=== PATIENT | female | born 1980 | race Hispanic/Latino ===

== ENCOUNTER 2017-02-10 01:01 | Emergency (ER) | payer OTHER ==
[2017-02-10 01:14] VITALS: BMI 26.7
[2017-02-10 01:22] VITALS: TEMP 97.8
--- NOTE | 2017-02-10 01:30 | ED PDOC ---
Arrival/HPI - General Chief Complaint: Chest Pain Time Seen by Provider: 02/10/17 01:03 Historian: Patient - History of Present Illness Narrative History of Present Illness (Text): 02/10/17 01:27 Lesa Hopkins is a 37 year old female, whose past medical history includes Hashimotos's thyroiditis, who presents to the Emergency department complaining of chest tightness since yesterday. Patient reports associated intermittent palpitations. Patient also notes bilateral lower extremity when standing, left greater than right. Patient states she had an ultrasound of bilateral lower extremities performed 2 months ago, which was negative. Patient denies any fever, chills, shortness of breath, nausea, vomiting, diarrhea, urinary symptoms, back pain, neck pain, headache, dizziness, or any other complaints. Symptom Onset: Gradual Symptom Course: Unchanged Activities at Onset: Rest, Light Context: Home Past Medical History - Provider Review Nursing Documentation Reviewed: Yes - Infectious Disease Hx of Infectious Diseases: None - Tetanus Immunization Tetanus Immunization: Unknown - Past Medical History Past Medical History: No Previous - Cardiac Hx Cardiac Disorders: Yes Other/Comment: postural orthostatic tachycardia syndrome - Pulmonary Hx Respiratory Disorders: No - Neurological Hx Neurological Disorder: No - HEENT Hx HEENT Disorder: No - Renal Hx Renal Disorder: No - Endocrine/Metabolic Hx Endocrine Disorders: Yes Hx Hypothyroidism: Yes (Petar's thyroiditis, now stable) - Hematological/Oncological Hx Blood Disorders: No - Integumentary Hx Dermatological Disorder: No - Musculoskeletal/Rheumatological Hx Musculoskeletal Disorders: No Hx Falls: No - Gastrointestinal Hx Gastrointestinal Disorders: No - Genitourinary/Gynecological Hx Genitourinary Disorders: No - Psychiatric Hx Psychophysiologic Disorder: Yes Hx Anxiety: Yes Hx Substance Use: No - Surgical History Other/Comment: ovarian cyst laparoscopic removal - Anesthesia Hx Anesthesia: Yes Hx Anesthesia Reactions: No Hx Malignant Hyperthermia: No - Suicidal Assessment Feels Threatened In Home Enviroment: No Family/Social History - Physician Review Nursing Documentation Reviewed: Yes Family/Social History: No Known Family HX Smoking Status: Never Smoked Hx Alcohol Use: No Hx Substance Use: No Hx Substance Use Treatment: No Allergies/Home Meds Allergies/Adverse Reactions: Allergies amoxicillin Allergy (Verified 02/10/17 01:14) RASH Penicillins Allergy (Verified 02/10/17 01:14) RASH wheat Allergy (Verified 02/10/17 01:14) RASH Home Medications: Home Meds Medication Instructions Recorded Confirmed No Known Home Med 02/10/17 02/10/17 Review of Systems - Physician Review All systems were reviewed & negative as marked: Yes - Review of Systems Constitutional: Normal. absent: Fevers Eyes: Normal ENT: Normal Respiratory: Normal. absent: SOB, Cough Cardiovascular: Chest Pain (+chest tightness), Palpitations Gastrointestinal: Normal. absent: Abdominal Pain, Diarrhea, Nausea, Vomiting Genitourinary Female: Normal Musculoskeletal: Other (+bilateral lower extremity swelling) Skin: Normal Neurological: Normal Endocrine: Normal Hemo/Lymphatic: Normal Psychiatric: Normal Physical Exam Vital Signs Reviewed: Yes Vital Signs Temp Pulse Resp BP Pulse Ox 02/10/17 03:49 79 17 102/69 99 02/10/17 01:21 97.8 F 96 H 20 118/88 96 Temperature: Afebrile Blood Pressure: Normal Pulse: Regular Respiratory Rate: Normal Appearance: Positive for: Well-Appearing, Non-Toxic, Comfortable Pain Distress: None Mental Status: Positive for: Alert and Oriented X 3 - Systems Exam Head: Present: Atraumatic, Normocephalic Pupils: Present: PERRL Extroacular Muscles: Present: EOMI Conjunctiva: Present: Normal Mouth: Present: Moist Mucous Membranes Neck: Present: Normal Range of Motion Respiratory/Chest: Present: Clear to Auscultation, Good Air Exchange. No: Respiratory Distress, Accessory Muscle Use Cardiovascular: Present: Regular Rate and Rhythm, Normal S1, S2. No: Murmurs Abdomen: Present: Normal Bowel Sounds. No: Tenderness, Distention, Peritoneal Signs Back: Present: Normal Inspection Upper Extremity: Present: Normal Inspection. No: Cyanosis, Edema Lower Extremity: Present: Normal Inspection. No: Edema Neurological: Present: GCS=15, CN II-XII Intact, Speech Normal Skin: Present: Warm, Dry, Normal Color. No: Rashes Psychiatric: Present: Alert, Oriented x 3, Normal Insight, Normal Concentration Medical Decision Making ED Course and Treatment: 02/10/17 01:27 Impression: 37 year old female complaining of chest tightness and intermittent palpitations. Plan: -- US Duplex Lower Extremities -- EKG -- Labs, cardiac enzymes, TSH, T4 -- Urinalysis -- Reassess and disposition Prior Visits: Notes and results from previous visits were reviewed. On 10/30/2016, pt was seen in the Emergency department for a puncture wound to left foot. Pt was d/c home. Progress Notes: Reviewed EKG, sinus tachycardia at [address]-segment elevations or depressions, no T-wave inversions, normal intervals. 02/10/17 02:17 Reviewed US Duplex Lower Extremities, preliminary read shows no evidence of DVT. Labs reviewed, potassium: 3.2. Replacement ordered. Otherwise benign 02/10/17 03:40 On re-evaluation, the patient feels better and is in no acute distress. I have discussed the results and plan with the patient, who expresses understanding. Patient in agreement with plan to discharged home. Patient is stable for discharge. Patient was instructed to follow up with physician/clinic in 1-2 days or return if symptoms worsen or new concerning symptoms arise. - Lab Interpretations Lab Results: 02/10/17 01:30 02/10/17 01:30 Lab Results 02/10/17 01:30: D-Dimer, Quantitative 0.19 02/10/17 01:30: Thyroxine (T4) 8.5, TSH 3rd Generation 2.50 02/10/17 01:30: Sodium 138, Potassium 3.2 L, Chloride 103, Carbon Dioxide 26, Anion Gap 12, BUN 14, Creatinine 0.6, Est GFR ( Amer) > 60, Est GFR (Non- Af Amer) > 60, Random Glucose 96, Calcium 9.2, Total Bilirubin 0.9, AST 39, ALT 59 H, Alkaline Phosphatase 79, Lactate Dehydrogenase 373, Total Creatine Kinase 44, Troponin I < 0.01, Total Protein 7.3, Albumin 4.3, Globulin 3.0, Albumin/ Globulin Ratio 1.4 02/10/17 01:30: Urine Color Light yellow, Urine Appearance Clear, Urine pH 6.0, Ur Specific [place] 1.010, Urine Protein Negative, Urine Glucose (UA) Negative, Urine Ketones 15 H, Urine Blood Trace-lysed H, Urine Nitrate Negative, Urine Bilirubin Negative, Urine Urobilinogen 0.2, Ur Leukocyte Esterase Negative, Urine RBC 0 - 2, Urine WBC 0 - 2, Ur Epithelial Cells 10 - 12, Urine Bacteria Small, Urine HCG, Qual Negative 02/10/17 01:30: PT 11.4, INR 1.06, APTT 32.4 H 02/10/17 01:30: WBC 8.2, RBC 4.61, Hgb 12.7, Hct 36.8, MCV 79.8 L, MCH 27.5, MCHC 34.5, RDW 13.0, Plt Count 242, MPV 10.2, Gran % 58.8, Lymph % (Auto) 29.9, [place] % (Auto) 8.4 H, Eos % (Auto) 2.7, Baso % (Auto) 0.2, Gran # 4.80, Lymph # 2.4, [place] # 0.7 H, Eos # 0.2, Baso # 0.02 I have reviewed the lab results: Yes - RAD Interpretation Radiology Orders: 02/10/17 01:28 DUPLEX LOWER EXTRM VEIN BILAT [US] Stat - EKG Interpretation EKG Interpretation (Text): EKG: Ordered, reviewed, and independently interpreted the EKG. Rate : 101 BPM Rhythm : sinus tachycardia Interpretation : No ST-segment elevations or depressions, no T-wave inversions, normal intervals. Comparison : No acute change from previous EKG on 03/14/16. Interpreted by ED Physician: Yes Type: 12 lead EKG - Medication Orders Current Medication Orders: Discontinued Medications Potassium Chloride (K-Dur 20 Meq Er Tab) 40 meq PO STAT STA Stop: 02/10/17 02:19 Last Admin: 02/10/17 02:33 Dose: 40 meq ROULA Risk Score for UA/NSTEMI - ROULA Risk Score Age > 64: NO 3 or more CAD Risk Factors: NO Known CAD (Stenosis greater than 50%): NO Aspirin use in past 7 days: NO Severe Angina: NO EKG ST changes greater than 0.5mm: NO Positive Cardiac Marker: NO ROULA Score: 0 % risk at 14 days of: all cause mortality, new or recurrent PR, or severe recurrent ischemia requiring urgen revascularization: 5% - Scribe Statement The provider has reviewed the documentation as recorded by the [employer] Horvath All medical record entries made by the Scribe were at my direction and personally dictated by me. I have reviewed the chart and agree that the record accurately reflects my personal performance of the history, physical exam, medical decision making, and the department course for this patient. I have also personally directed, reviewed, and agree with the discharge instructions and disposition. Disposition/Present on Arrival - Present on Arrival Any Indicators Present on Arrival: No History of DVT/PE: No History of Uncontrolled Diabetes: No Urinary Catheter: No History of Decub. Ulcer: No History Surgical Site Infection Following: None - Disposition Have Diagnosis and Disposition been Completed?: Yes Diagnosis: Palpitations, Chest pain Disposition: HOME/ ROUTINE Disposition Time: 03:40 Condition: GOOD Discharge Instructions (ExitCare): Chest Pain (ED), Palpitations (ED)
[2017-02-10 01:46] LABS: ADD MANUAL DIFF? NO
[2017-02-10 01:54] LABS: BASO # 0.02 K/mm3 (0.0-2.0); BASO % 0.2 % (0.0-3.0); EOS # 0.2 (0.0-0.7); EOS % 2.7 % (1.5-5.0); GRAN % 58.8 % (50.0-68.0); HEMATOCRIT 36.8 % (36.0-48.0); LYMPH # 2.4 (1.2-3.4); LYMPH % 29.9 % (22.0-35.0); MEAN CELL VOLUME 79.8 fL (80.0-105.0); MEAN CORPUSCULAR HEMOGLOBIN 27.5 pg (25.0-35.0); MEAN CORPUSCULAR HGB CONC 34.5 g/dl (31.0-37.0); MEAN PLATELET VOLUME 10.2 fl (7.0-11.0); MONO # 0.7 (0.1-0.6); MONO % 8.4 % (1.0-6.0); PLATELET COUNT 242 10^3/uL (120.0-450.0); WHITE BLOOD COUNT 8.2 10^3/ul (4.5-11.0)
[2017-02-10 02:00] LABS: ALB/GLOB RATIO 1.4 (1.1-1.8); ALKALINE PHOSPHATASE 79 U/L (38-133); ALT/SGPT 59 U/L (7-56); AST/SGOT 39 U/L (15-39); BILIRUBIN,TOTAL 0.9 mg/dL (0.2-1.3); BLOOD UREA NITROGEN 14 mg/dL (7-21); CALCIUM 9.2 mg/dL (8.4-10.5); CARBON DIOXIDE 26 mmol/L (21-33); CHLORIDE 103 mmol/L (98-107); GFR AFRICAN-AMERICAN > 60; GLUCOSE,RANDOM 96 mg/dL (70-110); POTASSIUM 3.2 mmol/L (3.6-5.0); SODIUM 138 mmol/L (132-148); TOTAL PROTEIN 7.3 g/dL (5.8-8.3); URINE BILIRUBIN NEGATIVE (NEGATIVE); URINE BLOOD TRACE-LYSED (NEGATIVE); URINE GLUCOSE (UA) NEGATIVE (NEGATIVE); URINE KETONE 15 mg/dL (NEGATIVE); URINE LEUKOCYTE ESTERASE NEGATIVE Leu/uL (NEGATIVE); URINE PROTEIN NEGATIVE mg/dL (<30 mg/dL); URINE UROBILINOGEN 0.2 E.U./dL (<1 E.U./dL)
[2017-02-10 02:15] LABS: TROPONIN I < 0.01 ng/mL
[2017-02-10 02:16] LABS: URINE APPEARANCE CLEAR (CLEAR); URINE COLOR LIGHT YELLOW (YELLOW)
[2017-02-10 02:17] LABS: T4 8.5 ug/dL (5.5-11.0)
[2017-02-10] MEDS ORDERED: Potassium Chloride 20 mEq ER Tab PO STA (02:18)
[2017-02-10 02:22] LABS: URINE BACTERIA SMALL (NEG); URINE RBC 0 - 2 /hpf (0-2); URINE WBC 0 - 2 /hpf (0-6)
[2017-02-10 02:30] LABS: THYROID STIMULATING HORMONE 2.5 mIU/mL (0.46-4.68)
[2017-02-10 02:49] LABS: INR 1.06 (0.93-1.08); PARTIAL THROMBOPLASTIN TIME 32.4 Seconds (23.7-30.8)
[2017-02-10 03:50] VITALS: BP 102/69; PULSE 79; RESP 17; O2SAT 99
--- NOTE | 2017-02-10 13:13 | US ---
HISTORY: Leg pain and swelling. Evaluate for DVT PHYSICIAN(S): Pineda Mario MD. TECHNIQUE: Duplex sonography and color-flow Doppler with graded compression were used to evaluate the deep venous systems of both lower extremities. FINDINGS: The visualized deep venous systems of both lower extremities are sonographically normal and compressible. Normal wave forms and augmentation are seen. There is no sonographic evidence for deep venous thrombosis in the visualized segments of both lower extremities. IMPRESSION: No sonographic evidence for deep venous thrombosis in the visualized segments of both lower extremities.
--- NOTE | 2017-02-11 01:15 | CARD ---
APPROVED REPORT EKG Measurement Heart [id number] <Conclusion> Sinus tachycardia Otherwise normal ECG
== END 2017-02-10 03:49 | disposition home or self-care (01) ==
LOC: ED 01:01
DX: R00.2 Palpitations (principal); R07.9 Chest pain, unspecified

== ENCOUNTER 2017-03-30 22:20 | Emergency (ER) | payer OTHER ==
[2017-03-30 22:21] VITALS: BMI 26.7
--- NOTE | 2017-03-30 23:17 | ED PDOC ---
Arrival/HPI <Senthil Sanchez - Last Filed: 03/31/17 00:07> - General Historian: Patient - History of Present Illness Time/Duration: > week Symptom Onset: Gradual Symptom Course: Worsening Quality: Cramping <Tiffanie Thorpe - Last Filed: 03/31/17 01:10> - General Chief Complaint: Abdominal Pain Time Seen by Provider: 03/30/17 22:43 - History of Present Illness Narrative History of Present Illness (Text): 03/30/17 22:58 36-year-old female approximately 6 weeks presents today with a 3 week history of lower abdominal cramping that worsened today. Patient denies chest pain or shortness of breath. She is complaining of some low back pain bilaterally. She denies urinary symptoms. Denies vaginal bleeding or vaginal discharge. Patient states she had a positive test at home but has never followed with a business english instructor. Patient states she does have a GERD with follow-up appointment. Patient claims that she is a high risk because she has autoimmune disease as well as thyroid problems. Patient is . Her previous child was born with defects. (Tiffanie Thorpe) Past Medical History - Provider Review Nursing Documentation Reviewed: Yes - Travel History Have you recently traveled outside [place] w/in the past 3 mons?: No - Infectious Disease Hx of Infectious Diseases: None - Tetanus Immunization Tetanus Immunization: Unknown - Reproductive Menopause: No - Past Medical History Past Medical History: No Previous - Cardiac Hx Cardiac Disorders: Yes Other/Comment: postural orthostatic tachycardia syndrome - Pulmonary Hx Respiratory Disorders: No - Neurological Hx Neurological Disorder: No - HEENT Hx HEENT Disorder: No - Renal Hx Renal Disorder: No - Endocrine/Metabolic Hx Endocrine Disorders: Yes Hx Hypothyroidism: Yes (Petar's thyroiditis, now stable) - Hematological/Oncological Hx Blood Disorders: No - Integumentary Hx Dermatological Disorder: No - Musculoskeletal/Rheumatological Hx Musculoskeletal Disorders: No Hx Falls: No - Gastrointestinal Hx Gastrointestinal Disorders: No - Genitourinary/Gynecological Hx Genitourinary Disorders: No - Psychiatric Hx Psychophysiologic Disorder: Yes Hx Anxiety: Yes Hx Substance Use: No - Surgical History Other/Comment: ovarian cyst laparoscopic removal - Anesthesia Hx Anesthesia: Yes Hx Anesthesia Reactions: No Hx Malignant Hyperthermia: No - Suicidal Assessment Feels Threatened In Home Enviroment: No <Tiffanie Thorpe - Last Filed: 03/31/17 01:10> Family/Social History - Physician Review Nursing Documentation Reviewed: Yes Family/Social History: Unknown Family HX Smoking Status: Never Smoked Hx Alcohol Use: No Hx Substance Use: No Hx Substance Use Treatment: No <Tiffanie Thorpe - Last Filed: 03/31/17 01:10> Allergies/Home Meds <Senthil Sanchez - Last Filed: 03/31/17 00:07> <Tiffanie Thorpe - Last Filed: 03/31/17 01:10> Allergies/Adverse Reactions: Allergies amoxicillin Allergy (Verified 03/30/17 22:38) RASH Penicillins Allergy (Verified 03/30/17 22:38) RASH wheat Allergy (Verified 03/30/17 22:38) RASH Review of Systems - Review of Systems Constitutional: absent: Fatigue, Fevers Respiratory: absent: SOB, Cough Cardiovascular: absent: Chest Pain, Palpitations Gastrointestinal: Abdominal Pain. absent: Constipation, Diarrhea, Nausea, Vomiting Genitourinary Female: absent: Dysuria, Frequency, Hematuria, Vaginal Bleeding, Vaginal Discharge Musculoskeletal: Back Pain. absent: Arthralgias, Neck Pain Skin: absent: Rash, Pruritis Neurological: absent: Headache, Dizziness Psychiatric: absent: Anxiety, Depression <Tiffanie Thorpe - Last Filed: 03/31/17 01:10> Physical Exam Vital Signs Reviewed: Yes Temperature: Afebrile Blood Pressure: Normal Pulse: Regular Respiratory Rate: Normal Appearance: Positive for: Well-Appearing, Non-Toxic, Comfortable Pain Distress: None Mental Status: Positive for: Alert and Oriented X 3 - Systems Exam Head: Present: Atraumatic Mouth: Present: Moist Mucous Membranes Neck: Present: Normal Range of Motion Respiratory/Chest: Present: Clear to Auscultation, Good Air Exchange. No: Respiratory Distress, Accessory Muscle Use Cardiovascular: Present: Regular Rate and Rhythm, Normal S1, S2. No: Murmurs Abdomen: Present: Normal Bowel Sounds. No: Tenderness, Distention, Peritoneal Signs, Rebound, Guarding Genitourinary/Pelvic Exam: Present: Other (PT refused vaginal/speculum examination) Back: Present: Normal Inspection. No: CVA Tenderness, Midline Tenderness, Paraspinal Tenderness Upper Extremity: Present: Normal Inspection Lower Extremity: Present: Normal Inspection Neurological: Present: GCS=15 Skin: Present: Warm, Dry, Normal Color. No: Rashes Psychiatric: Present: Alert, Oriented x 3 <Tiffanie Thorpe - Last Filed: 03/31/17 01:10> Vital Signs Temp Pulse Resp BP Pulse Ox 03/31/17 00:21 89 16 132/84 100 03/30/17 22:21 98.7 F 84 16 134/84 100 Medical Decision Making <Senthil Sanchez - Last Filed: 03/31/17 00:07> <Tiffanie Thorpe - Last Filed: 03/31/17 01:10> ED Course and Treatment: 03/30/17 23:29 Patient is nontoxic well appearing in no distress. stable vitals. c/o lower abdominal cramping with + test at home. CBC: wnl CMP: wnl Beta hC.30 TYPE AND SCREEN: A+ Urinalysis:+ blood, Ultrasound: FINDINGS: Gestation: There is a subcentimeter endometrial fluid collection suggesting early gestational sac. Currently no pole or yolk sac are identified. Placenta/amniotic fluid: Cannot be adequately evaluated due to the early gestational age. Uterus/cervix: There is a 13 mm uterine fundal lesion suggesting fibroid. Ovaries: No acute findings. No mass. Free fluid: No free fluid. IMPRESSION: There is a subcentimeter endometrial fluid collection suggesting early gestational sac. Currently no pole or yolk sac are identified. Discussed all the results the patient. advised f/u with the medical record assistant within the next 2 days. advised immediate return if symptoms worsen,persist or if new symptoms develop. Advised return in 48hours for repeat beta hcg. Impression: threatened Tylenol every 4 hours as needed for pain Increase fluids Followup with the business initiatives manager within the next 2 days Return immediately if symptoms worsen persist or if new symptoms develop: High fevers, heavy bleeding, severe abdominal pain, vomiting, diarrhea, dizziness or weakness or any other concerning symptoms develop. Repeat beta hCG in 48 hours vitamins daily. 03/31/17 00:47 (Tiffanie Thorpe) - Lab Interpretations Lab Results: 03/30/17 22:45 03/30/17 22:45 Lab Results 03/30/17 22:55: Blood Type A POSITIVE, Antibody Screen Negative, BBK History Checked No verified bt 03/30/17 22:45: WBC 10.0 D, RBC 4.87, Hgb 13.6, Hct 38.7, MCV 79.5 L, MCH 27.9 , MCHC 35.1, RDW 13.4, Plt Count 261, MPV 10.0, Gran % 60.6, Lymph % (Auto) 28.5 , [place] % (Auto) 8.1 H, Eos % (Auto) 2.5, Baso % (Auto) 0.3, Gran # 6.09, Lymph # 2.9, [place] # 0.8 H, Eos # 0.3, Baso # 0.03 03/30/17 22:45: Beta HCG, Quant 4242.30 H 03/30/17 22:45: Sodium 137, Potassium 3.7, Chloride 100, Carbon Dioxide 23, Anion Gap 18, BUN 13, Creatinine 0.6, Est GFR ( Amer) > 60, Est GFR (Non- Af Amer) > 60, Random Glucose 84, Calcium 9.7, Total Bilirubin 0.6, AST 40 H, ALT 74 H, Alkaline Phosphatase 82, Total Protein 7.6, Albumin 4.7, Globulin 2.9 , Albumin/Globulin Ratio 1.6 03/30/17 22:45: Urine Color Yellow, Urine Appearance Clear, Urine pH 6.0, Ur Specific [place] 1.010, Urine Protein Negative, Urine Glucose (UA) Negative, Urine Ketones Negative, Urine Blood Trace-intact H, Urine Nitrate Negative, Urine Bilirubin Negative, Urine Urobilinogen 0.2, Ur Leukocyte Esterase Negative , Urine RBC 0 - 2, Urine WBC 0 - 2, Ur Epithelial Cells 1 - 3, Urine Bacteria Rare - RAD Interpretation Radiology Orders: 03/30/17 22:47 OB TRANSVAGINAL [US] Stat - PA / UNIVERSITY RELATIONS VICE PRESIDENT / Resident Statement / has reviewed & agrees with the documentation as recorded. / has examined the patient and agrees with the treatment plan. <Senthil Sanchez - Last Filed: 03/31/17 00:07> Disposition/Present on Arrival <Senthil Sanchez - Last Filed: 03/31/17 00:07> - Present on Arrival Any Indicators Present on Arrival: No History of DVT/PE: No History of Uncontrolled Diabetes: No Urinary Catheter: No History of Decub. Ulcer: No History Surgical Site Infection Following: Obstetrical/Gynecological Surgery - Disposition Have Diagnosis and Disposition been Completed?: Yes Disposition Time: 00:49 Patient Plan: Discharge <Tiffanie Thorpe - Last Filed: 03/31/17 01:10> - Disposition Diagnosis: Threatened Disposition: HOME/ ROUTINE Patient Problems: Current Active Problems Problem Status Onset Threatened Acute Condition: GOOD Discharge Instructions (ExitCare): Threatened Miscarriage (ED) Additional Instructions: Tylenol every 4 hours as needed for pain Increase fluids Followup with the business initiatives manager within the next 2 days Return immediately if symptoms worsen persist or if new symptoms develop: High fevers, heavy bleeding, severe abdominal pain, vomiting, diarrhea, dizziness or weakness or any other concerning symptoms develop. Repeat beta hCG in 48 hours vitamins daily. Prescriptions: Multivit/Folic Acid/I [ Plus] 1 tab PO DAILY #30 tab Referrals: Domonique Delgado MD [Primary Care Provider] - Follow up with primary Patricia Miles MD [Staff Provider] - [facility] - Follow up with primary Forms: [employer] (Romanian), WORK NOTE
[2017-03-30 23:19] LABS: BASO # 0.03 K/mm3 (0.0-2.0); BASO % 0.3 % (0.0-3.0); EOS # 0.3 (0.0-0.7); EOS % 2.5 % (1.5-5.0); GRAN # 6.09 (1.4-6.5); GRAN % 60.6 % (50.0-68.0); HEMOGLOBIN 13.6 g/dL (12.0-16.0); LYMPH # 2.9 (1.2-3.4); LYMPH % 28.5 % (22.0-35.0); MEAN CELL VOLUME 79.5 fl (80.0-105.0); MEAN CORPUSCULAR HEMOGLOBIN 27.9 pg (25.0-35.0); MEAN CORPUSCULAR HGB CONC 35.1 g/dl (31.0-37.0); MONO # 0.8 (0.1-0.6); MONO % 8.1 % (1.0-6.0); PLATELET COUNT 261 10^3/uL (120.0-450.0); RBC 4.87 10^6/uL (3.5-6.1); RED CELL DISTRIBUTION WIDTH 13.4 % (11.5-14.5)
[2017-03-30 23:31] LABS: URINE BILIRUBIN NEGATIVE (NEGATIVE); URINE BLOOD TRACE-INTACT (NEGATIVE); URINE GLUCOSE (UA) NEGATIVE (NEGATIVE); URINE LEUKOCYTE ESTERASE NEGATIVE Leu/uL (NEGATIVE); URINE NITRATE NEGATIVE (NEGATIVE); URINE PROTEIN NEGATIVE mg/dL (<30 mg/dL); URINE UROBILINOGEN 0.2 E.U./dL (<1 E.U./dL)
[2017-03-30 23:35] LABS: URINE APPEARANCE CLEAR (CLEAR); URINE COLOR YELLOW (YELLOW)
[2017-03-30 23:48] LABS: URINE WBC 0 - 2 /hpf (0-6)
[2017-03-30 23:49] LABS: URINE RBC 0 - 2 /hpf (0-2)
[2017-03-30 23:51] LABS: ALB/GLOB RATIO 1.6 (1.1-1.8); ALBUMIN 4.7 g/dL (3.0-4.8); ALT/SGPT 74 U/L (7-56); AST/SGOT 40 U/L (15-39); BLOOD UREA NITROGEN 13 mg/dL (7-21); CALCIUM 9.7 mg/dL (8.4-10.5); GFR AFRICAN-AMERICAN > 60; GFR NON-AFRICAN AMERICAN > 60; URINE BACTERIA RARE (NEG)
[2017-03-31 00:51] VITALS: RESP 16; TEMP 98.7; O2SAT 100
[2017-03-31 00:54] VITALS: BP 132/84; PULSE 89
--- NOTE | 2017-03-31 11:48 | US ---
HISTORY: Pain. No history of recent/ related trauma provided LMP 02/23/2017 COMPARISON: None. TECHNIQUE: Transvaginal only. Real -time technique with 2D, duplex and color Doppler FINDINGS: UTERUS: Measures 4.3 x 5 x 8.8 cm. Normal in size and appearance. Location of fibroid(s) and size: Anterior measuring 9 x 10 x 13 mm. ENDOMETRIUM: Gestational sac identified 0.58 cm. Below threshold for calculation of reliable gestational age. No visible pole or yolk sac identified. CERVIX: Closed cervix 3.4 cm. RIGHT OVARY: Measures 1.8 x 2.6 x 2.8 cm. No solid mass. Normal flow. LEFT OVARY: Measures 2.2 x 3.3 x 3.3 cm. No solid mass. Normal flow. FREE FLUID: No significant free fluid noted. OTHER FINDINGS: None. IMPRESSION: Small gestational sac without yolk sac or pole. Additional benign and/or incidental findings described above. Concordant results (preliminary interpretation) provided by [facility]. Procedure Completed: 23:56. Preliminary ([facility]) Report: Dictated and Authenticated: 00:25. Final Interpretation: 11:46. March 31, 2017.
== END 2017-03-31 01:11 | disposition home or self-care (01) ==
LOC: ED 22:20
DX: O20.0 Threatened abortion (principal); Z3A.01 Less than 8 weeks gestation of pregnancy